=== PATIENT | female | born 1945 | race Caucasian/White ===

== ENCOUNTER → 2020-04-20 10:54 | Outpatient (CLI) | payer MEDICARE, OTHER, SELFPAY ==
[2020-01-16 10:12] VITALS: BMI 30.9
[2020-04-20 13:06] LABS: Vitamin D,25 Hydroxy 50.6 ng/mL
[2020-04-20 13:29] LABS: ALB/GLOB Ratio 1.1 RATIO (0.9-2.4); AST(SGOT) 17 U/L (15-37); Alanine Aminotransfer ALT/SGPT 18 U/L (13-56); Albumin, Serum 3.6 g/dL (3.2-5.0); Alkaline Phosphatase 53 U/L (45-117); Anion Gap 6 (5-15); BUN 17 mg/dL (7-18); Calcium,Total 9.4 mg/dL (8.5-10.1); Chloride 106 mmol/L (98-107); Cholesterol 264 mg/dL (200); Creatinine, Serum 0.77 mg/dL (0.55-1.02); EST Glomerular Filtration Rate 77 mL/min (>60); Est Glom Filt Rate - Afr Amer 93 mL/min (>60); Globulin 3.4 g/dL (2.2-4.2); Glucose 95 mg/dL (74-106); High Density Lipoprotein 43 mg/dL; Sodium Level 142 mmol/L (136-145); Triglycerides 348 mg/dL; Very Low Density Lipoprotein 70 mg/dL (5-40)
== END ==
PROVIDERS: PCP Physician Assistant Medical; Referring Provider Internal Medicine Endocrinology, Diabetes & Metabolism; Visit Provider Internal Medicine Endocrinology, Diabetes & Metabolism
DX: M81.0 Age-related osteoporosis without current pathological fracture (principal); E78.5 Hyperlipidemia, unspecified
CPT/HCPCS: 36415; 80053; 80061; 82306

== ENCOUNTER → 2020-05-06 10:45 | Outpatient (CLI) | payer MEDICARE, OTHER, SELFPAY ==
[2020-04-20 14:23] VITALS: BMI 30.9
[2020-05-06] MEDS: Zoledronic Acid 5 MG 100 ML 300 MG IV (11:21)
[2020-05-06 11:54] VITALS: BP 106/58; PULSE 60; RESP 12; TEMP 36.2; O2SAT 99
== END ==
PROVIDERS: PCP Physician Assistant Medical; Referring Provider Internal Medicine Endocrinology, Diabetes & Metabolism; Visit Provider Internal Medicine Endocrinology, Diabetes & Metabolism
DX: M81.0 Age-related osteoporosis without current pathological fracture (principal)
CPT/HCPCS: 96365; J3489

== ENCOUNTER → 2021-04-12 10:28 | Outpatient (CLI) | payer MEDICARE, SELFPAY ==
[2021-04-12 12:18] LABS: ALB/GLOB Ratio 0.9 RATIO (0.9-2.4); AST(SGOT) 18 U/L (15-37); Alanine Aminotransfer ALT/SGPT 25 U/L (13-56); Albumin, Serum 3.2 g/dL (3.2-5.0); Alkaline Phosphatase 40 U/L (45-117); Anion Gap 6 (5-15); BUN 19 mg/dL (7-18); BUN/Creat Ratio 25.8 RATIO (10-20); Calcium,Total 8.8 mg/dL (8.5-10.1); Chloride 106 mmol/L (98-107); Creatinine, Serum 0.74 mg/dL (0.55-1.02); EST Glomerular Filtration Rate 82 mL/min (>60); Est Glom Filt Rate - Afr Amer 99 mL/min (>60); Globulin 3.5 g/dL (2.2-4.2); Glucose 105 mg/dL (74-106); Protein, Total 6.7 g/dL (6.4-8.2); Sodium Level 141 mmol/L (136-145)
[2021-04-12 15:55] LABS: Vitamin D,25 Hydroxy 57.3 ng/mL
== END ==
PROVIDERS: PCP Physician Assistant Medical; Visit Provider Internal Medicine Endocrinology, Diabetes & Metabolism
DX: M81.0 Age-related osteoporosis without current pathological fracture (principal); E55.9 Vitamin D deficiency, unspecified
CPT/HCPCS: 36415; 80053; 82306

== ENCOUNTER 2021-05-18 19:23 | Inpatient (IN) | payer MEDICARE, SELFPAY ==
[2021-05-18] VITALS (23 sets, daily range): BP systolic 124–170; BP diastolic 61–129; PULSE 58–78; RESP 16–419; TEMP 35.8–36.9; O2SAT 94–100; BMI 31.0
--- NOTE | 2021-05-18 19:36 | CT_ITS ---
We are attempting to reach an attending provider to discuss findings. An addendum with communication details will be sent when the communication is complete. STUDY: CTA HEAD AND NECK WITH CONTRAST REASON FOR EXAM: Female, 76 years old. Slurred speech/strokelike symptoms RADIATION DOSAGE (If Supplied By Facility): CTDIvol = ( ) mGy, DLP = ( ) mGycm TECHNIQUE: CT angiography was performed with a multi-detector CT scanner. Data acquisition was obtained from the skull base through the vertex following intravenous administration of IV 100mL Isovue-370. MIP images were reconstructed from the axial data set. Post-processing of the angiographic images was performed, with multiplanar reformation and 3D reconstruction. Individualized dose optimization techniques were used for this CT. COMPARISON: No relevant priors. FINDINGS: Normal bilateral petrous and cavernous carotid arteries. Normal anterior cerebral arteries. Normal intact anterior communicating artery (ACOM). Normal M1 and M2 segments of the middle cerebral arteries, with normal M1 bifurcations. Normal right posterior communicating artery (PCOM). origin of the left posterior cerebral artery with prominent posterior to indicating artery. Right vertebral artery terminates as the posterior inferior cerebellar artery. Normal basilar artery with a normal basilar bifurcation. The visualized bilateral superior cerebellar (SCA) arteries are normal. Normal P1 segment on the right. origin of the left [employer] with absent P1 segment. Normal bilateral P2 and visualized P3 segments of the posterior cerebral arteries. There is no demonstrated aneurysm of the [place]. AORTIC ARCH: Normal visualized aortic arch. Normal origins of the brachiocephalic, left common carotid, and left subclavian arteries. RIGHT CAROTID ARTERIES: Normal right common carotid artery (CCA). Normal right common carotid bulb. Mild atherosclerotic calcification of the proximal right ICA without stenosis. Normal visualized cervical portion of the right internal carotid artery. Normal origin of the right external carotid artery (ECA). LEFT CAROTID ARTERIES: Normal left common carotid artery (CCA). Normal left common carotid bulb. Normal origin of the left internal carotid (ICA) artery without stenosis. Normal visualized cervical portion of the left internal carotid artery. Normal origin of the left external carotid artery (ECA). VERTEBRAL ARTERIES: Left dominant vertebral artery. CT/STROKE CTA Head AND Neck W/Con IMPRESSION: Normal CTA Head and neck with contrast. Electronically Signed: Caitlyn Morgan MD at 20:12 EDT Tel , Service support ,
--- NOTE | 2021-05-18 19:36 | CT_ITS ---
We are attempting to reach an attending provider to discuss findings. An addendum with communication details will be sent when the communication is complete. EXAMINATION : Head CT w/out contrast HISTORY : STROKE COMPARISON : None. TECHNIQUE : Multiple contiguous axial images were obtained from the skull base to the vertex without intravenous contrast. A radiation dose optimization technique was used for this scan. FINDINGS : The ventricles and sulci are normal in size. There is no evidence for acute intracranial hemorrhage, mass effect, or midline shift. There is no extra-axial fluid collection. There is normal valdez-white differentiation, without CT evidence of acute ischemia or infarct. The skull base and calvarium are unremarkable. The orbits are unremarkable. The paranasal sinuses are clear. The mastoid air cells are well-aerated. The soft tissues are unremarkable. CT/STROKE Brain/Head without Cont IMPRESSION: No acute intracranial abnormality. Electronically Signed: Be Jordan MD at 19:53 EDT Tel , Service support ,
--- NOTE | 2021-05-18 19:38 | EKG12_ITS ---
Test Reason : DYSRHYTHMIA Blood Pressure : / mmHG Vent. Rate : 071 BPM Atrial Rate : 071 BPM P-R Int : 148 ms QRS Dur : 082 ms QT Int : 402 ms P-R-T Axes : 035 003 022 degrees QTc Int : 436 ms Normal sinus rhythm Nonspecific ST abnormality Abnormal ECG Confirmed by EFRA LICONA, PRINCE ([id number]), tape editor CASSIUS ARMENTA ([id number]) on 05/20/2021 1:45:16 P M Referred By: GA Confirmed By:ANAT KRAUS MD
--- NOTE | 2021-05-18 19:43 | RAD_ITS ---
INDICATION: weakness EXAMINATION/TECHNIQUE: X-RAY - XR Chest 1 View COMPARISON: None. FINDINGS: The lungs are clear. The cardiomediastinal silhouette is unremarkable. Elevation of the right hemidiaphragm. No pleural effusion or pneumothorax. Degenerative changes of the thoracic spine. RAD/Chest 1 View (Portable) IMPRESSION: No acute radiographic abnormalities. Electronically Signed: Be Jordan MD at 20:36 EDT Tel , Service support ,
--- NOTE | 2021-05-18 19:45 | ED.RN ---
Just got off phone with [facility] and we are to call back when patient in room
--- NOTE | 2021-05-18 19:47 | ED.RN ---
On phone with [facility], they are contacting Dr Fuller
--- NOTE | 2021-05-18 19:52 | ED.RN ---
Nursing starting with leighton speaking again and reports this is the same as how it started when at the restaurant
[2021-05-18 19:57] LABS: Absolute Neutrophil Count 2.6 X10^3/uL (2.0-7.7); Basophil# 0.05 X10^3/uL; Basophil% 0.8 % (0-1); Eosinophil# 0.12 X10^3/uL; Eosinophils% 1.9 % (0-5); Hematocrit 40.4 % (37-47); Lymphocyte % 43.5 % (19-41); Mean Corp Hgb Conc 34.7 g/dL (32-36); Mean Corpuscular Hgb 31.7 pg (27.0-32.0); Mean Corpuscular Volume 91.4 fL (81-99); Mean Platelet Vol. 9.7 fl (6.2-12.0); Monocyte# 0.69 X10^3/uL; Monocyte% 11.1 % (0-10); NRBC Flagged by Analyzer 0 % (0-5); Neutrophil # 2.63 X10^3/uL (2.7-7.7); Neutrophil % 42.5 % (47-70); Platelet Count 173 K/mm3 (150-450); RBC Distribution Width CV 12.4 % (11.6-14.6); RBC Distribution Width SD 41.2 fl (35.1-43.9); Red Blood Count 4.42 M/mm3 (4.2-5.4); White Blood Count 6.2 K/mm3 (4.4-11.0)
[2021-05-18 20:00] LABS: Partial Thromboplast Time 25.1 Seconds (24.1-36.2); Prothrombin Time (Protime)PT. 12.6 SECONDS (11.7-14.9)
--- NOTE | 2021-05-18 20:08 | ED.RN ---
Doctors are discussing whether or not to do TPA at this time
--- NOTE | 2021-05-18 20:10 | ED.RN ---
is aware of risks and gave okay for the TPA. Pharmacy is aware.
[2021-05-18 20:19] LABS: Anion Gap 7 (5-15); BUN 24 mg/dL (7-18); BUN/Creat Ratio 24.7 RATIO (10-20); Calcium,Total 9.1 mg/dL (8.5-10.1); Chloride 108 mmol/L (98-107); Creatinine, Serum 0.97 mg/dL (0.55-1.02); EST Glomerular Filtration Rate 59 mL/min (>60); Est Glom Filt Rate - Afr Amer 72 mL/min (>60); Estimated Creatinine Clearance 40.82 ml/min; Glucose 112 mg/dL (74-106); Potassium 3.6 mmol/L (3.5-5.1); Sodium Level 141 mmol/L (136-145); Troponin-I HS 17 pg/mL (3.0-54.0)
[2021-05-18] MEDS: hydrALAZINE 20 MG/ML Vial IV (20:21)
--- NOTE | 2021-05-18 20:41 | ED.RN ---
TPA paused d/t change in the NIHSS but after eval, he decided to restart therapy as she started to follow directions, able to move the 4 extremities. Restarted TPA after decision made - see SEP.
[2021-05-18] MEDS: Ondansetron 4 MG/2 ML Vial IV (20:51)
[2021-05-18 21:29] LABS: Alcohol, Blood (Medical)-Serum < 3.0 mg/dL
--- NOTE | 2021-05-18 21:50 | CT_ITS ---
EXAM: CT ABDOMEN AND PELVIS WITHOUT INTRAVENOUS CONTRAST CLINICAL INDICATION: abd pain TECHNIQUE: Helically acquired images were obtained of the abdomen and pelvis without intravenous contrast. This CT exam was performed using one or more of the following dose reduction techniques: automated exposure control, adjustment of the mA and/or kV according to patient size, and/or use of iterative reconstruction technique. This report was created using [employer] report generation technology. COMPARISON: None. FINDINGS: LOWER THORAX: Unremarkable. Lung bases are clear. No cardiomegaly. No significant pericardial effusion. ABDOMEN: LIVER: 2.4 cm low-attenuation lesion in the lateral segment of the liver, not characterized without contrast. The liver is otherwise unremarkable. GALLBLADDER AND BILE DUCTS: Unremarkable. No calcified gallstones. No gallbladder distention or wall edema. No intra- or extrahepatic biliary ductal dilation. PANCREAS: Unremarkable. No focal cystic mass. SPLEEN: Unremarkable. Normal size without focal cystic or solid mass. ADRENALS: Unremarkable. No nodules. KIDNEYS AND URETERS: Retained contrast in the renal collecting systems from prior injection. No filling defect in the collecting systems. No hydronephrosis. Kidneys are unremarkable. Normal renal size and position. STOMACH AND BOWEL: Unremarkable. No stomach or bowel distention. No focal inflammatory change. PELVIS: APPENDIX: No evidence of acute appendicitis. BLADDER: Bladder is well distended with unopacified urine and is unremarkable. REPRODUCTIVE: Unremarkable as visualized. No mass. ABDOMEN and PELVIS: INTRAPERITONEAL SPACE: Unremarkable. No ascites or other fluid collection. No free air. BONES/JOINTS: Unremarkable. No suspicious lytic or blastic abnormality. SOFT TISSUES: Unremarkable. No discrete abdominal or pelvic wall hernia. VASCULATURE: Unremarkable. Abdominal aorta is normal in caliber. LYMPH NODES: Unremarkable. No enlarged lymph nodes. CT/Abdomen/Pelvis without Cont IMPRESSION: 1. No acute findings in the abdomen or pelvis. 2. Hepatic hypodensity not adequately characterized without contrast. Electronically Signed: Caitlyn Morgan MD at 22:26 EDT Tel , Service support ,
[2021-05-18 21:52] LABS: Bacteria 0 SEEN /hpf (None Seen); Color, Urine Yellow (Yellow); Glucose, Dipstick Normal (Normal); Ketone-Dipstick 5 mg/dl (Negative); Leukocyte Esterase-Dipstick 25 /ul (Negative); Mucous, Urine 0 SEEN /hpf (<or=2+); Nitrite-Dipstick Negative (Negative); Occult Blood-Urine 25 /ul (Negative); Protein-Dipstick Negative (Negative); Red Blood Cells-Urine 0 SEEN /hpf (0-5); Squamous Epithelial Cells - UA 0 SEEN /hpf (5-10); Urine Bilirubin Dipstick Negative (Negative); Urine Clarity Clear (Clear); Urine Urobilinogen Normal (Normal)
[2021-05-18] MEDS: proMETHazine 25 MG/ML Syringe 12.5 MG IM (21:52)
[2021-05-18 22:36] LABS: Amphetamine Urine VISTA NEGATIVE (<1000 ng/mL); Barbiturate Urine VISTA NEGATIVE (< 200 ng/mL); Benzodiazepine Urine VISTA NEGATIVE (< 200 ng/mL); Cocaine Urine VISTA NEGATIVE (< 300 ng/mL); Ecstacy Urine VISTA NEGATIVE (< 500 ng/mL); Methadone Urine VISTA NEGATIVE (< 300 ng/mL); PCP Urine VISTA NEGATIVE (< 25 ng/mL); THC Urine VISTA NEGATIVE (< 50 ng/mL); Vista UDS pH Range 7
[2021-05-18 22:37] LABS: White Blood Cells 0-5 SEEN /hpf (0-5)
--- NOTE | 2021-05-18 23:21 | PCM.HP.STD ---
HPI - General General Date of Admission: 05/18/21 Date of Service: 05/18/21 Chief Complaint: Dysarthria HPI Narrative The patient is a 76 y/o F w/ PMHx: Osteoporosis, Obesity, Hx Skin CA, HLD who presents to the [facility] ED on 05/18/21 with history of onset significant dysarthria starting at 1730 with difficulty speaking and when attempts were made speech was unintelligible while she had been out eating with also transient confusion and difficulty with language which reportedly briefly improved while in the ER but symptoms then worsened with 1 prior similar episode a year prior however it was much less severe at that time and only lasted minutes and from work-up both EEG and MRI were obtained with no occlusive findings at that time. Patient also reports an associated mild to severe left-sided headache, throbbing, ranging from 3-10 out of 10 in severity with light and sound sensitivity associated as well as mild nausea and while in the ED complains of mild abdominal discomfort and upset. Work-up in the ED included T 96.4 temporally, heart rate 59, BP initially 155/80 with repeat 143/84, respiratory rate 17, 99% on room air, CBC with WBC 6.2, hemoglobin 14, platelet 173 without marked shift, unremarkable coags, BMP with chloride 108, BUN/creatinine 24/0.97, glucose 112, high-sensitivity troponin 17, ethyl alcohol less than 3, CT head with no acute intracranial findings, CTA head and neck noted to be normal per radiology, chest x-ray with no acute cardiopulmonary findings, UA not marked appearing, UDS unremarkable, EKG SR without acute evidence of ischemia. NIH stroke scale reportedly 7 at 2013 in the ED upon evaluation and seemed to intermittently vacillate between 3-20. In the ED TPA initially because secondary to change in NH stroke scale however restarted following physician reassessment. Patient did have onset of abdominal pain following alteplase administration therefore follow-up CT abdomen pelvis was obtained with no acute findings in the abdomen pelvis with a hepatic hypodensity not adequately characterized without contrast. [facility] Medical History (Updated 05/19/21 @ 00:[address] Sonny Mckeon, DO) Cataract Fracture Hyperlipidemia Low calcium levels Osteopenia Skin cancer Vision abnormalities Home Medications aspirin 81 mg tablet,delayed release 81 mg PO DAILY 01/16/20 [History Last Taken Unknown] calcium carbonate 600 mg calcium (1,500 mg) tablet 600 mg PO BID 01/16/20 [History Last Taken Unknown] docusate sodium 50 mg capsule 50 mg PO DAILY 01/16/20 [History Last Taken Unknown] multivitamin 1 tab PO DAILY 01/16/20 [History Last Taken Unknown] vitamin D3-vitamin K2 1 tab PO DAILY 05/18/21 [History Last Taken Unknown] Allergy/AdvReac Type Severity Reaction Status Date / Time bee venom protein (honey bee) Allergy Severe Anaphylaxis Verified 05/18/21 19:29 Family History (Updated 05/19/21 @ 00:[address] Corry Null MD) Mother Osteoporosis Cancer Hx Liver CA. Father Heart disease CVA (cerebral vascular accident) Surgical History (Updated 05/19/21 @ 00:[address] Corry Null MD) No history of previous surgery Social History (Updated 05/19/21 @ 00:[address] Corry Null MD) household members: spouse Smoking Status: Never smoker alcohol intake: never substance use type: does not use ROS Review of Systems ROS Unobtainable: due to encephalopathy Vital Signs Vital Signs Vital Signs: 05/18/21 19:24 05/18/21 19:32 05/18/21 19:33 Temperature 96.4 F L Temperature Source Temporal Pulse Rate 59 L 58 L Respiratory Rate 17 16 17 Blood Pressure 155/80 H 143/84 H 143/84 H Blood Pressure Mean 105 103 103 Pulse Ox 99 99 98 Oxygen Delivery Method Room Air Room Air Room Air 05/18/21 19:53 05/18/21 20:02 05/18/21 20:20 Temperature 97.2 F L Temperature Source Temporal Pulse Rate 59 L 62 64 Respiratory Rate 20 H 62 H Blood Pressure 148/129 H 170/84 H 155/61 H Blood Pressure Mean 135 112 92 Pulse Ox 99 100 Oxygen Delivery Method Room Air Room Air 05/18/21 20:22 05/18/21 20:23 05/18/21 20:31 Temperature Temperature Source Pulse Rate 63 68 Respiratory Rate 19 H Blood Pressure 155/61 H 155/63 H 146/70 H Blood Pressure Mean 92 95 Pulse Ox 100 Oxygen Delivery Method Room Air 05/18/21 20:38 05/18/21 20:53 05/18/21 21:02 Temperature Temperature Source Pulse Rate 74 72 72 Respiratory Rate 18 22 H 16 Blood Pressure 124/70 H 156/69 H 135/96 H Blood Pressure Mean 88 98 109 Pulse Ox 98 98 97 Oxygen Delivery Method Room Air Room Air Room Air 05/18/21 21:08 05/18/21 21:16 05/18/21 21:23 Temperature 97.8 F 98.3 F 98.1 F Temperature Source Temporal Temporal Temporal Pulse Rate 72 71 74 Respiratory Rate 19 H 17 16 Blood Pressure 134/76 H 136/67 H 136/64 H Blood Pressure Mean 95 90 88 Pulse Ox 100 99 98 Oxygen Delivery Method Room Air Room Air Room Air 05/18/21 21:30 05/18/21 22:00 05/18/21 22:15 Temperature 97.4 F L 97.4 F L 98.1 F Temperature Source Temporal Temporal Temporal Pulse Rate 70 67 74 Respiratory Rate 419 H 18 18 Blood Pressure 136/65 H 134/68 H 145/71 H Blood Pressure Mean 88 90 95 Pulse Ox 98 97 98 Oxygen Delivery Method Room Air Room Air Room Air 05/18/21 22:45 05/18/21 23:01 Temperature 98.4 F Temperature Source Temporal Pulse Rate 78 74 Respiratory Rate 16 16 Blood Pressure 143/76 H 133/80 H Blood Pressure Mean 98 97 Pulse Ox 97 94 Oxygen Delivery Method Room Air Room Air Weight Weight: 175 lb 0.752 oz Body Mass Index (BMI) 31.0 Physical Exam Narrative Physical Examination: General: Awakens to some stimuli, intermittently alert, oriented currently to self and able to correctly notify her and her sister but has been extremely confused intermittently, currently cooperative, laying in the ED bed, moaning, answering some questions but with some difficulty. Skin: Normal color, normal turgor, no icterus, no cyanosis. HEENT: AT/NC, EOMI, PERRLA, dry MM, no carotid bruits or JVD noted. Lungs: Diminished, greater bases, moderate effort, no rales, ronchi or wheezing. Heart: Regular rate and rhythm; no gallop, rub audible. Abdomen: Soft, NTTP, ND, mildly hyperactive BS, no HSM. Extremities: No cyanosis, clubbing, or edema. Neurological: Awakens to some stimuli, intermittently alert, oriented currently to self and able to correctly notify her and her sister but has been extremely confused intermittently, currently cooperative, laying in the ED bed, moaning, answering some questions but with some difficulty, cognitive function currently not baseline intact; pupils equally reactive to light and accommodation but difficult exam as very light sensitive, cranial nerves grossly appear normal, moving extremities spontaneously, sensation appears intact but difficulty with any concept of finger-nose or [id number], negative Babinski, strength severely globally decreased secondary to current presentation, highly sound and light sensitive. Psychiatric: Affect appears uncomfortable, moaning, no acute evidence of depressive or anxiety feelings. Results Lab / Micro Data Result Diagrams: 05/18/21 19:25 05/18/21 19:25 Labs: Laboratory Results - last 24 hr 05/18/21 19:25: WBC 6.2, RBC 4.42, Hgb 14.0, Hct 40.4, MCV 91.4, MCH 31.7, MCHC 34.7, RDW Std Deviation 41.2, RDW Coeff of Latisha 12.4, Plt Count 173, MPV 9.7, Immature Gran % (Auto) 0.200, Neut % (Auto) 42.5 L, Lymph % (Auto) 43.5 H, [place] % (Auto) 11.1 H, Eos % (Auto) 1.9, Baso % (Auto) 0.8, Absolute Neuts (auto) 2.6, Absolute Lymphs (auto) 2.70, Nucleated RBC % 0 05/18/21 19:25: PT 12.6, INR 1.0, APTT 25.1 05/18/21 19:25: Sodium 141, Potassium 3.6, Chloride 108 H, Carbon Dioxide 26.0, Anion Gap 7, BUN 24 H, Creatinine 0.97, Estim Creat Clear Calc 40.82, Est GFR (MDRD) Af Amer 72, Est GFR (MDRD) Non-Af 59 L, BUN/Creatinine Ratio 24.7 H, Glucose 112 H, Calcium 9.1, Troponin I High Sens 17 05/18/21 19:50: Ethyl Alcohol < 3.0 05/18/21 21:42: Urine Color Yellow, Urine Clarity Clear, Urine pH 8.0, Ur Specific [place] 1.010, Urine Protein Negative, Urine Glucose (UA) Normal, Urine Ketones 5 H, Urine Occult Blood 25 H, Urine Nitrite Negative, Urine Bilirubin Negative, Urine Urobilinogen Normal, Ur Leukocyte Esterase 25 H, Urine RBC 0 SEEN, Urine WBC 0-5 SEEN, Ur Squamous Epith Cells 0 SEEN, Urine Bacteria 0 SEEN, Urine Mucus 0 SEEN 05/18/21 : Urine Opiates Screen NEGATIVE, Urine Methadone Screen NEGATIVE, Ur Barbiturates Screen NEGATIVE, Ur Phencyclidine Scrn NEGATIVE, Ur Amphetamines Screen NEGATIVE, U Methamphetamin-MDMA NEGATIVE, U Benzodiazepines Scrn NEGATIVE, Urine Cocaine Screen NEGATIVE, U Cannabinoids Screen NEGATIVE, Ur Drug Screen Comment Radiology Impression Brain CT 05/18/21 19:36 IMPRESSION: No acute intracranial abnormality. Electronically Signed: Be Jordan MD at 19:53 EDT Tel , Service support , ADDENDUM: 05/18/212005 IMPRESSION: No acute intracranial abnormality. N.B. : The above Results were Read Back by Be Jordan MD to Sonny Mckeon DO, and understanding confirmed on 05/18/2021 19:59:56 (ET). Electronically Signed: Be Jordan MD at 19:53 EDT Tel , Service support , ADDENDUM: 05/18/212005 IMPRESSION: No acute intracranial abnormality. N.B. : The above Results were Read Back by Be Jordan MD to Sonny Mckeon DO, and understanding confirmed on 05/18/2021 19:59:56 (ET). Electronically Signed: Be Jordan MD at 19:53 EDT Tel , Service support , Head/Neck CTA 05/18/21 19:36 IMPRESSION: Normal CTA Head and neck with contrast. Electronically Signed: Caitlyn Morgan MD at 20:12 EDT Tel , Service support , ADDENDUM: 05/18/212018 IMPRESSION: Normal CTA Head and neck with contrast. N.B. : The above Results were Read Back by Caitlyn Morgan MD to Sonny Mckeon, , DO, and understanding confirmed on 05/18/2021 20:12:37 (ET). Electronically Signed: Caitlyn Morgan MD at 20:12 EDT Tel , Service support , Chest X-Ray 05/18/21 19:43 IMPRESSION: No acute radiographic abnormalities. Electronically Signed: Be Jordan MD at 20:36 EDT Tel , Service support , Abdomen/Pelvis CT 05/18/21 21:50 IMPRESSION: 1. No acute findings in the abdomen or pelvis. 2. Hepatic hypodensity not adequately characterized without contrast. Electronically Signed: Caitlyn Morgan MD at 22:26 EDT Tel , Service support , Assessment & Plan Assessment/Plan (1) Acute CVA (cerebrovascular accident): PLAN: The patient is a 76 y/o F w/ PMHx: Migraines, Osteoporosis, Obesity, Hx Skin CA, HLD who presents to the [facility] ED on 05/18/21 with history of onset significant dysarthria starting at 1730 with difficulty speaking and when attempts were made speech was unintelligible while she had been out eating with also transient confusion and difficulty with language which reportedly briefly improved while in the ER but symptoms then worsened with 1 prior similar episode of shorter duration. 1. Dysarthria concerning for Acute CVA versus higher suspicion Acute complex migraine: Will admit to the ICU given TPA administration recommendation and initiation following telemetry stroke ED assessment, will obtain MRI Brain, ECHO, PT/OT/Speech/Nutrition evaluation per protocol. Will allow permissive HTN, given TPA will necessitate repeat CT head versus MRI in 24 hours and initiation if no evidence of any bleeding asa at that time, at least moderate dose statin given age w/ AM FLP, fall precautions, TSH, magnesium, FLP, hemoglobin A1c requested. Once repeat imaging obtained will require repeat neurology assessment given TPA usage. Given ICU admission will also require automatic door mechanic evaluation. Rapid COVID pending. Pending continued assessment if MRI negative may need to consider EEG or initiation more likely of regimen for intractable complex migraine. 2. Elevated BP without hypertensive diagnosis: Upon presentation blood pressures above goal, given presentation maintaining permissive hypertension, add regimen once clinically appropriate if necessary, as needed agents per 3. Hyperlipidemia: Not on agent, adding moderate dose statin given presentation, FLP in AM. 4. Chronic osteoporosis: Following with endocrinology, ongoing outpatient Reclast infusions per records, encourage continued outpatient follow-up. 5. Incidental hepatic hypodensity: CT scan is noted with hepatic hypodensity not adequately characterized without contrast, will add on hepatic profile and may need to consider follow-up liver ultrasound. 6. DVT prophylaxis: SCDs, defer any chemoprophylaxis given TPA usage as noted. 7. CODE status: Patient JAYANT is her who is present and living will is currently in place. Discussed CODE status at length including difference between FULL code, DNR-CCA and DNR-CC status. Following discussions about the differences in these status, requested Full Code status. Advanced Care Planning Face to Face Time: 16 minutes. Charges/Coding Visit Charges Inpatient E&M: 83609 Init Hosp L3 Procedures Hospitalists Procedures: 56494 Advncd Care Plan 30 Min
[2021-05-19] VITALS (32 sets, daily range): BP systolic 94–146; BP diastolic 51–75; PULSE 52–74; RESP 11–20; TEMP 36.3–36.8; O2SAT 94–100; BMI 28.0
[2021-05-19 00:03] LABS: AST(SGOT) 38 U/L (15-37); Alanine Aminotransfer ALT/SGPT 23 U/L (13-56); Albumin, Serum 3.4 g/dL (3.2-5.0); Alkaline Phosphatase 40 U/L (45-117); Bilirubin, Direct 0.05 mg/dL (0.00-0.30); Globulin 3.7 g/dL (2.2-4.2); Magnesium 1.9 mg/dL (1.6-2.6); Protein, Total 7.1 g/dL (6.4-8.2)
--- NOTE | 2021-05-19 00:43 | EDS_ITS ---
HPI History of Present Illness Chief Complaint: Neuro S/Sx Narrative Narrative: Patient is a 76-year-old female who is brought in with concern for strokelike symptoms. states that they were talking about going to a [place] restaurant around 530 this evening. Suddenly she began to have difficulty saying the word Sudanese and then her words became gibberish. Secondary to this mental status change she was brought in for evaluation [facility] Medical History (Updated 05/19/21 @ 00:[address] Sonny Mckeon DO) Cataract Fracture Hyperlipidemia Low calcium levels Osteopenia Skin cancer Vision abnormalities Home Medications aspirin 81 mg tablet,delayed release 81 mg PO DAILY 01/16/20 [History Last Taken Unknown] calcium carbonate 600 mg calcium (1,500 mg) tablet 600 mg PO BID 01/16/20 [History Last Taken Unknown] docusate sodium 50 mg capsule 50 mg PO DAILY 01/16/20 [History Last Taken Unknown] multivitamin 1 tab PO DAILY 01/16/20 [History Last Taken Unknown] vitamin D3-vitamin K2 1 tab PO DAILY 05/18/21 [History Last Taken Unknown] Allergy/AdvReac Type Severity Reaction Status Date / Time bee venom protein (honey bee) Allergy Severe Anaphylaxis Verified 05/18/21 19:29 Family History Mother Osteoporosis Social History Smoking Status: Never smoker ROS ROS ED ROS Narrative Please note review of systems may be unreliable secondary to patient's change in mental status Constitutional Constitutional ED: Denies chills or fever(s) Eyes Eyes: Reports other Details: Positive photophobia Cardiovascular Cardiovascular: Denies chest pain Respiratory/Chest Respiratory/Chest: Denies cough or dyspnea Gastrointestinal Gastrointestinal: Reports abdominal pain and nausea; Denies vomiting Genitourinary Genitourinary ED: Denies dysuria Musculoskeletal Musculoskeletal: Denies myalgias or neck pain Integumentary Denies rash Neurologic Neurologic: Reports headache(s) Hematologic/Lymphatic Hematologic/Lymphatic: Denies easy bleeding or easy bruising EXAM Physical Exam Const Vital Signs: 05/18/21 19:24 05/18/21 19:32 05/18/21 19:33 Temperature 96.4 F L Temperature Source Temporal Pulse Rate 59 L 58 L Respiratory Rate 17 16 17 Blood Pressure 155/80 H 143/84 H 143/84 H Blood Pressure Mean 105 103 103 Pulse Ox 99 99 98 Oxygen Delivery Method Room Air Room Air Room Air 05/18/21 19:53 05/18/21 20:02 05/18/21 20:20 Temperature 97.2 F L Temperature Source Temporal Pulse Rate 59 L 62 64 Respiratory Rate 20 H 62 H Blood Pressure 148/129 H 170/84 H 155/61 H Blood Pressure Mean 135 112 92 Pulse Ox 99 100 Oxygen Delivery Method Room Air Room Air 05/18/21 20:22 05/18/21 20:23 05/18/21 20:31 Temperature Temperature Source Pulse Rate 63 68 Respiratory Rate 19 H Blood Pressure 155/61 H 155/63 H 146/70 H Blood Pressure Mean 92 95 Pulse Ox 100 Oxygen Delivery Method Room Air 05/18/21 20:38 05/18/21 20:53 05/18/21 21:02 Temperature Temperature Source Pulse Rate 74 72 72 Respiratory Rate 18 22 H 16 Blood Pressure 124/70 H 156/69 H 135/96 H Blood Pressure Mean 88 98 109 Pulse Ox 98 98 97 Oxygen Delivery Method Room Air Room Air Room Air 05/18/21 21:08 05/18/21 21:16 05/18/21 21:23 Temperature 97.8 F 98.3 F 98.1 F Temperature Source Temporal Temporal Temporal Pulse Rate 72 71 74 Respiratory Rate 19 H 17 16 Blood Pressure 134/76 H 136/67 H 136/64 H Blood Pressure Mean 95 90 88 Pulse Ox 100 99 98 Oxygen Delivery Method Room Air Room Air Room Air 05/18/21 21:30 05/18/21 22:00 05/18/21 22:15 Temperature 97.4 F L 97.4 F L 98.1 F Temperature Source Temporal Temporal Temporal Pulse Rate 70 67 74 Respiratory Rate 419 H 18 18 Blood Pressure 136/65 H 134/68 H 145/71 H Blood Pressure Mean 88 90 95 Pulse Ox 98 97 98 Oxygen Delivery Method Room Air Room Air Room Air 05/18/21 22:45 05/18/21 23:01 05/18/21 23:15 Temperature 98.4 F Temperature Source Temporal Pulse Rate 78 74 78 Respiratory Rate 16 16 16 Blood Pressure 143/76 H 133/80 H 142/72 H Blood Pressure Mean 98 97 95 Pulse Ox 97 94 98 Oxygen Delivery Method Room Air Room Air Room Air Positive well nourished and well developed General Appearance ED: well developed HEENT Reports moist mucous membranes Eyes PERRL and EOMs intact bilaterally Neck supple Neck Narrative: No meningeal signs Chest Wall palpation of chest normal Resp normal respiratory effort and clear to auscultation bilaterally Cardio regular rate and regular rhythm Rate: other Other Details: Radial pulses are +2-4 bilaterally are equal and symmetric GI non-distended GI Narrative: Mild diffuse pain with palpation but no voluntary guarding or rigidity or pulsatile mass Auscultation: normoactive bowel sounds Palpation: soft Extremity normal to inspection Neuro Neuro Narrative: Patient presents the ER slightly obtunded and cannot tell me her birthdate or the year. She has difficulty following commands and there is mild dysarthria noted. Secondary to these changes she receives a total NIH stroke scale score of 3. Psych Psych Narrative: Patient seems to have a nervous/anxious affect Mood & Affect: anxious Skin no rashes or lesions noted MDM MDM MDM Narrative Medical decision making narrative: Patient presented to the ER with change in mental status as well as focal neurologic deficits giving her an NIH stroke scale score of 3. She presented approximately 2 hours from the onset of this and therefore stroke alert was activated. Patient was evaluated by the stroke neurologist and they agree that with her constellation of symptoms as well as the fact that her difficulty with speech is significantly life altering that she be given TPA. Therefore as patient was within the TPA window and did not have other contraindications to its use the TPA was ordered. CT revealed no acute bleed and CTA revealed no obvious obstruction or stenosis. Blood work revealed no clinically significant findings either. Therefore at this time with the strokelike changes and the fact TPA was given she will need to be admitted to the ICU to further delineate if the cause of her symptoms were atypical migraine versus true stroke in nature Lab Data Attestation: I reviewed the patient's lab results. Labs: Laboratory Results - last 24 hr 05/18/21 05/18/21 05/18/21 19:25 19:25 19:25 WBC 6.2 RBC 4.42 Hgb 14.0 Hct 40.4 MCV 91.4 MCH 31.7 MCHC 34.7 RDW Std Deviation 41.2 RDW Coeff of Latisha 12.4 Plt Count 173 MPV 9.7 Immature Gran % (Auto) 0.200 Neut % (Auto) 42.5 L Lymph % (Auto) 43.5 H [place] % (Auto) 11.1 H Eos % (Auto) 1.9 Baso % (Auto) 0.8 Absolute Neuts (auto) 2.6 Absolute Lymphs (auto) 2.70 Nucleated RBC % 0 PT 12.6 INR 1.0 APTT 25.1 Sodium 141 Potassium 3.6 Chloride 108 H Carbon Dioxide 26.0 Anion Gap 7 BUN 24 H Creatinine 0.97 Estim Creat Clear Calc 40.82 Est GFR (MDRD) Af Amer 72 Est GFR (MDRD) Non-Af 59 L BUN/Creatinine Ratio 24.7 H Glucose 112 H Calcium 9.1 Troponin I High Sens 17 Urine Color Urine Clarity Urine pH Ur Specific [place] Urine Protein Urine Glucose (UA) Urine Ketones Urine Occult Blood Urine Nitrite Urine Bilirubin Urine Urobilinogen Ur Leukocyte Esterase Urine RBC Urine WBC Ur Squamous Epith Cells Urine Bacteria Urine Mucus Ethyl Alcohol 05/18/21 05/18/21 19:50 21:42 WBC RBC Hgb Hct MCV MCH MCHC RDW Std Deviation RDW Coeff of Latisha Plt Count MPV Immature Gran % (Auto) Neut % (Auto) Lymph % (Auto) [place] % (Auto) Eos % (Auto) Baso % (Auto) Absolute Neuts (auto) Absolute Lymphs (auto) Nucleated RBC % PT INR APTT Sodium Potassium Chloride Carbon Dioxide Anion Gap BUN Creatinine Estim Creat Clear Calc Est GFR (MDRD) Af Amer Est GFR (MDRD) Non-Af BUN/Creatinine Ratio Glucose Calcium Troponin I High Sens Urine Color Yellow Urine Clarity Clear Urine pH 8.0 Ur Specific [place] 1.010 Urine Protein Negative Urine Glucose (UA) Normal Urine Ketones 5 H Urine Occult Blood 25 H Urine Nitrite Negative Urine Bilirubin Negative Urine Urobilinogen Normal Ur Leukocyte Esterase 25 H Urine RBC 0 SEEN Urine WBC 0-5 SEEN Ur Squamous Epith Cells 0 SEEN Urine Bacteria 0 SEEN Urine Mucus 0 SEEN Ethyl Alcohol < 3.0 Radiography Diagnostic Testing: Clinical Impression(s) from Imaging Studies Brain CT 05/18/21 19:36 IMPRESSION: No acute intracranial abnormality. Electronically Signed: Be Jordan MD at 19:53 EDT Tel , Service support , ADDENDUM: 05/18/212005 IMPRESSION: No acute intracranial abnormality. N.B. : The above Results were Read Back by Be Jordan MD to Sonny Mckeon DO and understanding confirmed on 05/18/2021 19:59:56 (ET). Electronically Signed: Be Jordan MD at 19:53 EDT Tel , Service support , ADDENDUM: 05/18/212005 IMPRESSION: No acute intracranial abnormality. N.B. : The above Results were Read Back by Be Jordan MD to Sonny Mckeon DO, and understanding confirmed on 05/18/2021 19:59:56 (ET). Electronically Signed: Be Jordan MD at 19:53 EDT Tel , Service support , Head/Neck CTA 05/18/21 19:36 IMPRESSION: Normal CTA Head and neck with contrast. Electronically Signed: Caitlyn Morgan MD at 20:12 EDT Tel , Service support , ADDENDUM: 05/18/212018 IMPRESSION: Normal CTA Head and neck with contrast. N.B. : The above Results were Read Back by Caitlyn Morgan MD to Sonny Mckeon DO, DO, and understanding confirmed on 05/18/2021 20:12:37 (ET). Electronically Signed: Caitlyn Morgan MD at 20:12 EDT Tel , Service support , Chest X-Ray 05/18/21 19:43 IMPRESSION: No acute radiographic abnormalities. Electronically Signed: Be Jordan MD at 20:36 EDT Tel , Service support , Abdomen/Pelvis CT 05/18/21 21:50 IMPRESSION: 1. No acute findings in the abdomen or pelvis. 2. Hepatic hypodensity not adequately characterized without contrast. Electronically Signed: Caitlyn Morgan MD at 22:26 EDT Tel , Service support , Critical Care Time Critical Care Time: Yes Critical care time (excluding procedures): - (Please note critical care time of 33 minutes) Discharge Plan Triage Chief Complaint: Neuro S/Sx ED Provider: Sonny Mckeon Dx/Rx/DC Orders Clinical Impression: Acute CVA (cerebrovascular accident) Primary Care Provider: Alyson Enrique Disposition Disposition: Acute Care Hospital [facility] Discharge Date/Time: 05/19/21 00:22
--- NOTE | 2021-05-19 01:02 | ECHOD_ITS ---
Reason For Study: CVA Procedure This was a 2D Doppler, Color Flow transthoracic echocardiogram. Bubble study performed. Exam performed portable in ICU/CCU. Left Ventricle Normal LV size. Left ventricular systolic function is normal. The estimated ejection fraction is 60 %. Stage 1 diastolic dysfunction. No regional wall motion abnormalities noted. Right Ventricle Normal RV size. Normal systolic function. Atria Normal left atrium. Normal right atrium. Mitral Valve Normal mitral valve. Tricuspid Valve Normal tricuspid valve. Mild tricuspid valve insufficiency. Pulmonary artery systolic pressure is 27 mmHg. Aortic Valve Normal aortic valve. Trisinus/trileaflet aortic valve. Pulmonic Valve Normal pulmonic valve. Great Vessels Normal aortic root. The pulmonary artery is normal size. Normal inferior vena cava. Pericardium/Pleural No pericardial effusion. Medication Performed a rapid injection of agitated mix of 9 cc saline and 1cc air to assess for atrial septal defect. MMode/2D Measurements & Calculations LVIDd: 4.6 cm IVSd: 1.1 cm LA dimension: 3.9 cm LVIDs: 2.3 cm LVPWd: 1.2 cm FS: 50.8 % LAV(MOD-bp): 34.2 ml LA A4 area: 13.4 cm2 RA A4 area: 10.9 cm2 LAV(MOD-bp) Indexed: 18.8 ml/m2 LAV(MOD-sp2): 35.5 ml LAV(MOD-sp4): 30.3 ml Time Measurements MV dec time: 0.30 sec Doppler Measurements & Calculations MV E max kenneth: 79.3 cm/sec Lat Peak E' Kenneth: 6.3 cm/sec Med Peak E' Kenneth: 7.4 cm/sec MV A max kenneth: 98.7 cm/sec E/E' lat: 12.7 E/E' med: 10.7 MV E/A: 0.80 MV V2 max: 96.3 cm/sec MV P1/2t max kenneth: 88.6 cm/sec Ao V2 max: 126.1 cm/sec MV max P.7 mmHg MV P1/2t: 88.5 msec Ao max P.4 mmHg MV V2 mean: 48.3 cm/sec MV dec slope: 293.3 cm/sec2 MV mean P.1 mmHg MV V2 VTI: 32.9 cm MVA(P1/2t): 2.5 cm2 LV V1 max: 125.1 cm/sec PA V2 max: 93.4 cm/sec TR max kenneth: 240.1 cm/sec LV V1 max P.3 mmHg TR max P.1 mmHg ECHO/Echo Complete Interpretation Summary Normal LV size. Left ventricular systolic function is normal. The estimated ejection fraction is 60 %. Stage 1 diastolic dysfunction. Pulmonary artery systolic pressure is 27 mmHg. Structurally normal valves. Ordering Physician: Corry Null Referring Physician: Alyson Enrique Performed By: Bj Calvert RCS
[2021-05-19] MEDS: Acetaminophen 325 MG Tablet 650 MG PO ×2 (01:17→20:55)
[2021-05-19] MEDS: 0.9% Normal Saline 1,000 ML 100 ML IV (01:34)
--- NOTE | 2021-05-19 02:55 | NURSING ---
Pt. refuses to cooperate during NIH. Refuses to open eyes stating that the room is to bright even though all lights in room are off and room curtain is pulled.
[2021-05-19 04:31] LABS: Cholesterol 249 mg/dL (200); High Density Lipoprotein 42 mg/dL; Thyroid Stim Hormone (TSH) 0.53 uIU/mL (0.358-3.74); Triglycerides 148 mg/dL; Very Low Density Lipoprotein 30 mg/dL (5-40)
[2021-05-19 07:30] LABS: Bedside Glucose 105 mg/dL (70-110)
--- NOTE | 2021-05-19 08:05 | CON.PCM.CC_ITS ---
Assessment & Plan Assessment/Plan (1) Acute CVA (cerebrovascular accident): PLAN: RECOMMENDATIONS: 1. Continue routine monitoring post TPA protocol. 2. Follow-up head imaging is planned for this evening. 3. Allow for permissive hypertension for now. 4. PT/OT evaluations tomorrow. 5. Speech therapy evaluation with dietary advancement. 6. Echocardiogram is pending. IMPRESSIONS: 1. Questionable CVA status post TPA The patient presented with symptoms concerning for acute ischemic CVA versus complicated migraine. The patient did receive TPA. Initial head imaging was unremarkable. Follow-up MRI is planned for later today. For now, the patient will remain on bed rest. Continue to allow for permissive hypertension. PT/OT evaluations. Speech therapy evaluation is pending with dietary advancement to follow. 2. Advanced age/hyperlipidemia/osteoporosis Complicates care, management, recovery and prognosis. Continue home medications as indicated. This note was generated with [employer] software. It may contain incorrect words, spelling, and punctuation that were not noted in checking the note before signing. HPI Consult Data Date of Consult: 05/19/21 HPI Narrative Reason for Consultation: ? CVA s/p TPA HPI Narrative: The patient is a 76-year-old female, with a history as outlined below, who presented to the emergency department on May 18 with confusion and dysarthria. The patient apparently had a similar episode to this approximately 1 year ago with an unremarkable work-up, including MRI and EEG. She also reported an associated headache at the time of her presentation. On presentation to the emergency department, the patient was noted to be afebrile and hemodynamically stable. She was maintaining appropriate oxygen saturations on room air. CBC with differential was unremarkable. Chemistry profile was unremarkable. Urine analysis was unremarkable. Toxicology screen was negative. Coagulation profile was within normal limits. CTA head and neck was within normal limits. CT head revealed no acute intracranial abnormality. Chest x-ray demonstrated an elevated right hemidiaphragm. CT abdomen/pelvis was unremarkable. Tele-neurology consultation was obtained. Etiologies of considera tion included acute CVA versus complicated migraine. It was recommended that TPA be administered. The patient received the aforementioned medication in the emergency department. She was subsequently transferred to the medical intensive care unit for further management. [facility] Medical History Cataract Fracture Hyperlipidemia Low calcium levels Osteopenia Skin cancer Vision abnormalities Home Medications aspirin 81 mg tablet,delayed release 81 mg PO DAILY 01/16/20 [History Last Taken Unknown] calcium carbonate 600 mg calcium (1,500 mg) tablet 600 mg PO BID 01/16/20 [History Last Taken Unknown] docusate sodium 50 mg capsule 50 mg PO DAILY 01/16/20 [History Last Taken Unknown] multivitamin 1 tab PO DAILY 01/16/20 [History Last Taken Unknown] vitamin D3-vitamin K2 1 tab PO DAILY 05/18/21 [History Last Taken Unknown] Allergy/AdvReac Type Severity Reaction Status Date / Time bee venom protein (honey bee) Allergy Severe Anaphylaxis Verified 05/18/21 19:29 Family History (Updated 05/19/21 @ 00:[address] Corry Null MD) Mother Osteoporosis Cancer Hx Liver CA. Father Heart disease CVA (cerebral vascular accident) Surgical History No history of previous surgery Social History (Updated 05/19/21 @ 00:[address] Corry Null MD) household members: spouse Smoking Status: Never smoker alcohol intake: never substance use type: does not use ROS Constitutional Constitutional: Reports headache(s); Denies chills, fatigue or fever(s) Eyes Eyes: Denies blurry vision or change in vision ENT HEENT: Reports headache(s) Cardiovascular Cardiovascular: Denies chest pain, dyspnea or edema Respiratory/Chest Respiratory/Chest: Denies cough or dyspnea Gastrointestinal Gastrointestinal: Denies abdominal pain, diarrhea, nausea or vomiting Genitourinary Genitourinary: Denies difficulty urinating Musculoskeletal Musculoskeletal: Denies arthralgias, back pain or joint pain Integumentary Integumentary: Denies lesions, rash or skin ulcer Neurologic Neurologic: Reports abnormal speech and confusion; Denies abnormal gait Psychiatric Psychiatric: Denies anxiety or depression Endocrine Endocrinology: Denies fatigue Hematologic/Lymphatic Hematologic/Lymphatic: Denies easy bleeding or easy bruising Physical Exam Const alert and no apparent distress General Appearance: cooperative HEENT normocephalic, head/scalp atraumatic and moist oral mucous membranes Eyes PERRL and EOMs intact bilaterally Neck supple General: trachea midline Chest inspection of chest normal Resp Auscultation: clear to auscultation bilaterally Cardio regular rate and regular rhythm GI normal to inspection, nondistended, normoactive bowel sounds Extremity no clubbing, cyanosis or edema Skin no rashes or lesions noted Neuro CN's II-XII intact bilaterally, moves all extremities and no focal motor deficits Speech: speech normal Psych cooperative and affect normal Lab / Micro Data Result Diagrams: 05/18/21 19:25 05/18/21 19:25 Labs: Laboratory Results - last 24 hr 05/18/21 19:23: POC Glucose 105 05/18/21 19:25: WBC 6.2, RBC 4.42, Hgb 14.0, Hct 40.4, MCV 91.4, MCH 31.7, MCHC 34.7, RDW Std Deviation 41.2, RDW Coeff of Latisha 12.4, Plt Count 173, MPV 9.7, Immature Gran % (Auto) 0.200, Neut % (Auto) 42.5 L, Lymph % (Auto) 43.5 H, Love % (Auto) 11.1 H, Eos % (Auto) 1.9, Baso % (Auto) 0.8, Absolute Neuts (auto) 2.6, Absolute Lymphs (auto) 2.70, Nucleated RBC % 0 05/18/21 19:25: PT 12.6, INR 1.0, APTT 25.1 05/18/21 19:25: Sodium 141, Potassium 3.6, Chloride 108 H, Carbon Dioxide 26.0, Anion Gap 7, BUN 24 H, Creatinine 0.97, Estim Creat Clear Calc 40.82, Est GFR (MDRD) Af Amer 72, Est GFR (MDRD) Non-Af 59 L, BUN/Creatinine Ratio 24.7 H, Glucose 112 H, Calcium 9.1, Troponin I High Sens 17 05/18/21 19:50: Ethyl Alcohol < 3.0 05/18/21 21:42: Urine Color Yellow, Urine Clarity Clear, Urine pH 8.0, Ur Specific [place] 1.010, Urine Protein Negative, Urine Glucose (UA) Normal, Urine Ketones 5 H, Urine Occult Blood 25 H, Urine Nitrite Negative, Urine Bilirubin Negative, Urine Urobilinogen Normal, Ur Leukocyte Esterase 25 H, Urine RBC 0 SEEN, Urine WBC 0-5 SEEN, Ur Squamous Epith Cells 0 SEEN, Urine Bacteria 0 SEEN, Urine Mucus 0 SEEN 05/18/21 23:38: Magnesium 1.9, Total Bilirubin 0.50, Direct Bilirubin 0.05, AST 38 H, ALT 23, Alkaline Phosphatase 40 L, Total Protein 7.1, Albumin 3.4, Globulin 3.7 05/18/21 : Urine Opiates Screen NEGATIVE, Urine Methadone Screen NEGATIVE, Ur Barbiturates Screen NEGATIVE, Ur Phencyclidine Scrn NEGATIVE, Ur Amphetamines Screen NEGATIVE, U Methamphetamin-MDMA NEGATIVE, U Benzodiazepines Scrn NEGATIVE, Urine Cocaine Screen NEGATIVE, U Cannabinoids Screen NEGATIVE, Ur Drug Screen Comment 05/19/21 04:00: Triglycerides 148, Cholesterol 249 H, LDL Cholesterol 177 H, VLDL Cholesterol 30, HDL Cholesterol 42, TSH 0.53 Micro: Microbiology 05/19/21 00:30 Nasal Secretion SARS-CoV-2 Antigen (Rapid) - Final Radiology Impression Brain CT 05/18/21 19:36 IMPRESSION: No acute intracranial abnormality. Electronically Signed: Be Jordan MD at 19:53 EDT Tel , Service support , ADDENDUM: 05/18/212005 IMPRESSION: No acute intracranial abnormality. N.B. : The above Results were Read Back by Be Jordan MD to Sonny Mckeon DO, and understanding confirmed on 05/18/2021 19:59:56 (ET). Electronically Signed: Be Jordan MD at 19:53 EDT Tel , Service support , ADDENDUM: 05/18/212005 IMPRESSION: No acute intracranial abnormality. N.B. : The above Results were Read Back by Be Jordan MD to Sonny Mckeon DO, and understanding confirmed on 05/18/2021 19:59:56 (ET). Electronically Signed: Be Jordan MD at 19:53 EDT Tel , Service support , Head/Neck CTA 05/18/21 19:36 IMPRESSION: Normal CTA Head and neck with contrast. Electronically Signed: Caitlyn Morgan MD at 20:12 EDT Tel , Service support , ADDENDUM: 05/18/21 2019 IMPRESSION: Normal CTA Head and neck with contrast. N.B. : The above Results were Read Back by Caitlyn Morgan MD to Sonny Mckeon DO, DO, and understanding confirmed on 05/18/2021 20:12:37 (ET). Electronically Signed: Caitlyn Morgan MD at 20:12 EDT Tel , Service support , Chest X-Ray 05/18/21 19:43 IMPRESSION: No acute radiographic abnormalities. Electronically Signed: Be Jordan MD at 20:36 EDT Tel , Service support , Abdomen/Pelvis CT 05/18/21 21:50 IMPRESSION: 1. No acute findings in the abdomen or pelvis. 2. Hepatic hypodensity not adequately characterized without contrast. Electronically Signed: Caitlyn Morgan MD at 22:26 EDT Tel , Service support , Charges/Coding Visit Charges Inpatient E&M: 45977 Init Hosp L3
[2021-05-19 08:47] LABS: Hemoglobin A1c 5.6 % (3.8-5.6)
--- NOTE | 2021-05-19 09:56 | PCS.PANDOC ---
PANDEMIC DOCUMENTATION INITIATED: Date: 03/15/2021 Time: 190
--- NOTE | 2021-05-19 10:44 | CASEMGMT ---
Social Work Pt presenting with stroke. PHQ9 depression screen completed with pt with score of 0/27 indicating no depression. Pt made aware of association of stroke and depression. Pt with no mental health concerns at this time. RAMIREZ De La Fuente
--- NOTE | 2021-05-19 10:47 | CASEMGMT ---
Social Work SW to room to meet with patient for initial assessment. SW introduced self and role at [facility]. Pt resting in bed in no distress and is Alert and Oriented x3 and answers all questions appropriately. Care providers, pharmacy, and demographics verified at this time. PCP: JUN Medina Specialists: none Preferred Pharmacy: [facility] Insurance: [facility] Prescription Benefit: yes Living Will/HPOA: Pt thinks she may have completed a LW and HCPOA but is not 100% certain. She states her Blair Pickett would be her HCPOA. SW offered to assist with completing advance directives or provide more information and pt denied. LNOK: , Blair Patterson Living Arrangements: Pt lives at home with her and is independent in all areas of care needs. Transportation: Pt drives herself. DME: Pt states she has no DME. HHC/SNF: None prior Pt wishes to return home and states has no concerns with going home at time of discharge. SW informed her that once pt is able to get out of bed and receive therapy, SW will assess for home going needs. Pt states her is retired and is able to assist at home as needed. Plan: Discharge home with spouse. RAMIREZ De La Fuente
[2021-05-19] MEDS: Multivitamins,Therapeutic Tablet 1 TABLET PO (11:05)
[2021-05-19] MEDS: Calcium Carbonate 500 MG Tablet PO ×2 (11:05→20:55)
--- NOTE | 2021-05-19 12:55 | PN.HOSP_ITS ---
Subjective Subjective Patient seen and examined. She was admitted with a complaint of slurred speech, with concerns for stroke. CT of he brain was negative for any acute intracranial pathology; CTA of hte head and neck was also normal, and EKG showed no evidence of acute ischemic changes. NIH stroke scale was 7 on admission, so she was given tPA and admitted to the ICU afterwards. Patient feels better and had no active complaints. SHe felt her speech had improved. SHe denied any numbness, tingling in any extremities, any focal weak ness or any mouth droop. Review of systems is otherwise negative. Objective Data Objective Data Vital Signs: Vital Signs Temp Pulse Resp BP Pulse Ox 98.2 F 57 L 18 114/61 97 05/19/21 07:00 05/19/21 10:00 05/19/21 10:00 05/19/21 10:00 05/19/21 10:00 Oxygen Delivery Method Room Air Weight: 173 lb 11.588 oz Body Mass Index (BMI) 28.0 Intake & Output: Intake and Output for Last 24 Hours 05/17/21 05/18/21 05/19/21 23:59 23:59 23:59 Intake Total 64.40 / 64.40 0 / 0 Balance 64.40 / 64.40 0 / 0 Lab / Micro Data Result Diagrams: 05/18/21 19:25 05/18/21 19:25 Labs: Laboratory Results - last 24 hr 05/18/21 19:23: POC Glucose 105 05/18/21 19:25: WBC 6.2, RBC 4.42, Hgb 14.0, Hct 40.4, MCV 91.4, MCH 31.7, MCHC 34.7, RDW Std Deviation 41.2, RDW Coeff of Latisha 12.4, Plt Count 173, MPV 9.7, Im mature Gran % (Auto) 0.200, Neut % (Auto) 42.5 L, Lymph % (Auto) 43.5 H, Dyer % (Auto) 11.1 H, Eos % (Auto) 1.9, Baso % (Auto) 0.8, Absolute Neuts (auto) 2.6, Absolute Lymphs (auto) 2.70, Nucleated RBC % 0 05/18/21 19:25: PT 12.6, INR 1.0, APTT 25.1 05/18/21 19:25: Sodium 141, Potassium 3.6, Chloride 108 H, Carbon Dioxide 26.0, Anion Gap 7, BUN 24 H, Creatinine 0.97, Estim Creat Clear Calc 40.82, Est GFR (MDRD) Af Amer 72, Est GFR (MDRD) Non-Af 59 L, BUN/Creatinine Ratio 24.7 H, Glucose 112 H, Calcium 9.1, Troponin I High Sens 17 05/18/21 19:50: Ethyl Alcohol < 3.0 05/18/21 21:42: Urine Color Yellow, Urine Clarity Clear, Urine pH 8.0, Ur Specific Beatty 1.010, Urine Protein Negative, Urine Glucose (UA) Normal, Urine Ketones 5 H, Urine Occult Blood 25 H, Urine Nitrite Negative, Urine Bilirubin Negative, Urine Urobilinogen Normal, Ur Leukocyte Esterase 25 H, Urine RBC 0 SEEN, Urine WBC 0-5 SEEN, Ur Squamous Epith Cells 0 SEEN, Urine Bacteria 0 SEEN, Urine Mucus 0 SEEN 05/18/21 23:38: Magnesium 1.9, Total Bilirubin 0.50, Direct Bilirubin 0.05, AST 38 H, ALT 23, Alkaline Phosphatase 40 L, Total Protein 7.1, Albumin 3.4, Globulin 3.7 05/18/21 : Urine Opiates Screen NEGATIVE, Urine Methadone Screen NEGATIVE, Ur Barbiturates Screen NEGATIVE, Ur Phencyclidine Scrn NEGATIVE, Ur Amphetamines Screen NEGATIVE, U Methamphetamin-MDMA NEGATIVE, U Benzodiazepines Scrn NEGATIVE, Urine Cocaine Screen NEGATIVE, U Cannabinoids Screen NEGATIVE, Ur Drug Screen Comment 05/19/21 04:00: Triglycerides 148, Cholesterol 249 H, LDL Cholesterol 177 H, VLDL Cholesterol 30, HDL Cholesterol 42, TSH 0.53 05/19/21 04:00: Hemoglobin A1c 5.6 Micro: Microbiology 05/19/21 00:30 Nasal Secretion SARS-CoV-2 Antigen (Rapid) - Final Radiography Diagnostic Testing: Radiology Impression Brain CT 05/18/21 19:36 IMPRESSION: No acute intracranial abnormality. Electronically Signed: Be Jordan MD at 19:53 EDT Tel , Service support , ADDENDUM: 05/18/212005 IMPRESSION: No acute intracranial abnormality. N.B. : The above Results were Read Back by Be Jordan MD to Sonny Mckeon DO, and understanding confirmed on 05/18/2021 19:59:56 (ET). Electronically Signed: Be Jordan MD at 19:53 EDT Tel , Service support , ADDENDUM: 05/18/212005 IMPRESSION: No acute intracranial abnormality. N.B. : The above Results were Read Back by Be Jordan MD to Sonny Mckeon DO, and understanding confirmed on 05/18/2021 19:59:56 (ET). Electronically Signed: Be Jordan MD at 19:53 EDT Tel , Service support , Head/Neck CTA 05/18/21 19:36 IMPRESSION: Normal CTA Head and neck with contrast. Electronically Signed: Caitlyn Morgan MD at 20:12 EDT Tel , Service support , ADDENDUM: 05/18/212018 IMPRESSION: Normal CTA Head and neck with contrast. N.B. : The above Results were Read Back by Caitlyn Morgan MD to Sonny Mckeon DO , DO, and understanding confirmed on 05/18/2021 20:12:37 (ET). Electronically Signed: Caitlyn Morgan MD at 20:12 EDT Tel , Service support , Chest X-Ray 05/18/21 19:43 IMPRESSION: No acute radiographic abnormalities. Electronically Signed: Be Jordan MD at 20:36 EDT Tel , Service support , Abdomen/Pelvis CT 05/18/21 21:50 IMPRESSION: 1. No acute findings in the abdomen or pelvis. 2. Hepatic hypodensity not adequately characterized without contrast. Electronically Signed: Caitlyn Morgan MD at 22:26 EDT Tel , Service support , Echocardiogram 05/19/21 01:02 Interpretation Summary Normal LV size. Left ventricular systolic function is normal. The estimated ejection fraction is 60 %. Stage 1 diastolic dysfunction. Pulmonary artery systolic pressure is 27 mmHg. Structurally normal valves. Ordering Physician: Corry Null Referring Physician: Alyson Enrique Performed By: Bj Calvert RCS Physical Exam Const alert, oriented x3 and no apparent distress Exam Limitations: no limitations HEENT head/scalp atraumatic and moist oral mucous membranes Head and Scalp: normocephalic Eyes PERRL, EOMs intact bilaterally and conjunctivae normal Neck no lymphadenopathy Resp normal respiratory effort, no retractions, no use of accessory muscles and clear to auscultation bilaterally Cardio regular rate, regular rhythm, S1 normal heart sound, S2 normal heart sound and no murmurs GI normal to inspection, nondistended, normoactive bowel sounds, soft to palpation, non-tender and non-distended Extremity normal to inspection, full ROM and no clubbing, cyanosis or edema Peripheral Pulses: Yes pulses 2+ throughout Skin no rashes or lesions noted Neuro oriented x3, CN's II-XII intact bilaterally, moves all extremities, no focal motor deficits and no sensory deficits noted Sensorium / Orientation: awake and alert Speech: speech normal Motor Exam: strength 5/5 throughout Psych affect normal Assessment & Plan Assessment/Plan (1) Acute CVA (cerebrovascular accident): PLAN: #Probable CVA * dysarthria has largely resolved. Had a CT of the brain which showed no evidence of stroke * received tPA yesterday * BP meds on hold to allow for permissive hypertension * neurochecks per stroke protocol * for MRI of the brain today, 24 hours after administration of tPA * PT/OT consult * on high intensity statin * fall precautions * check A1C * #Hyperlipidemia: on high intensity statin. lipid panel showed cholesterol of 249 and LDL of 177. #Chronic osteoporosis: on reclast. Follow up with PCP and registered respiratory technician on outpatient basis #Incidental hepatic hypodensity * as per CT scan which showed hepatic hypodensity, which wasnt adequately characterised without contrast. Liver enzymes not grossly abnormal. * to follow up with PCP on outpatient basis for further work up as needed. * DVT prophylaxis: SCDs. no anticoagulation as she received tPA yesterday. Charges/Coding Visit Charges Inpatient E&M: 19376 Subs Hosp L2
[2021-05-19] MEDS: CHLORHEXIDINE GLUC 2% CLOTH 1 EACH TOWELETTE TOPICAL (14:20)
--- NOTE | 2021-05-19 20:00 | MRI_ITS ---
STUDY: MRI BRAIN WITHOUT CONTRAST REASON FOR EXAM: Female, 76 years old. CVA -- MRI 24 hours after IV alteplase, speech difficulty TECHNIQUE: Standardized multiplanar fat and water weighted pulse sequences were obtained. COMPARISON: None. FINDINGS: Normal size of the ventricles and extra-axial spaces for the patient''s age. There are a limited number of small white matter hyperintensities, distributed throughout the deep white matter tracts of the cerebral hemispheres, consistent with mild chronic white matter ischemic changes. There is no evidence for recent intracranial ischemia or other cause of cytotoxic edema on diffusion weighted imaging (DWI). Normal bilateral basal ganglia. Normal thalami. There is no extra-axial fluid accumulation. Normal flow voids within the major intracranial circulation suggesting patency by spin echo criteria. Normal sella turcica, pituitary gland, infundibular stalk, optic chiasm and hypothalamus. Normal tectal plate and pineal gland. Normal midbrain, milka and medulla. Normal cerebellum. Normal basal cisterns. Normal bilateral temporal bones. Normal bilateral internal auditory canals. No demonstrated orbital abnormality, within the constraints of a routine brain study. Normal visualized paranasal sinuses. Normal calvarium and skull base. Left intraparotid lymph node noted. Normal visualized upper cervical spine. MRI/Brain without Contrast IMPRESSION: No finding of acute infarct. Electronically Signed: Marco Antonio Chamberlain MD at 22:13 EDT Tel , Service support ,
[2021-05-19] MEDS: MELATONIN 3 MG TABLET PO (20:55)
[2021-05-20] VITALS (9 sets, daily range): BP systolic 108–127; BP diastolic 42–88; PULSE 49–60; RESP 12–18; TEMP 36.6–36.8; O2SAT 94–98; BMI 28.0
--- NOTE | 2021-05-20 00:16 | PCM.HOSP.N ---
Hospitalist Note MRI Brain without acute findings. Patient with ongoing headache with light/sound sensitivity, rated 7/10 currently. Given this negative image do feel patient presentation likely acute complex migraine. Will initiate IV VPA 500mg Q6 hours, IV Decadron 4mg Q6 hours, IV Toradol 15 mg q 8 x 5 doses and PO Neurontin 100mg TID. If VILLANUEVA improves would benefit from consideration upon discharge to home on regimen including Depakote ER 500mg QHS, Neurontin 100 mg TID with meals x 1 week, Medrol dose pack, Imitrex prn with Neurology follow-up.
--- NOTE | 2021-05-20 00:52 | NURSING ---
Pt woken up to give meds. Pt refused. said she has no vega at this time
[2021-05-20] MEDS: Calcium Carbonate 500 MG Tablet PO (08:27)
[2021-05-20] MEDS: Multivitamins,Therapeutic Tablet 1 TABLET PO (08:27)
[2021-05-20] MEDS: Aspirin E.C. 81 MG Tablet PO (08:27)
--- NOTE | 2021-05-20 08:34 | TELEMED_ITS ---
[facility] has confirmed receipt of a request for visit. This document confirms receipt of the order initiating the consult. To find the results of the consultation, please view the patient's reports for the scanned Telemed Consult.
[2021-05-20 08:53] LABS: Absolute Lymphocyte Count 2.04 X10^3/uL (0.83-4.51); Basophil# 0.05 X10^3/uL; Basophil% 0.8 % (0-1); Eosinophil# 0.29 X10^3/uL; Eosinophils% 4.9 % (0-5); Hematocrit 40.2 % (37-47); Hemoglobin 13.7 g/dL (12.0-15.0); Lymphocyte # 2.04 X10^3/ul (0.83-4.51); Lymphocyte % 34.6 % (19-41); Mean Corp Hgb Conc 34.1 g/dL (32-36); Mean Corpuscular Hgb 31.1 pg (27.0-32.0); Mean Corpuscular Volume 91.2 fL (81-99); Mean Platelet Vol. 9.4 fl (6.2-12.0); Monocyte# 0.48 X10^3/uL; Monocyte% 8.1 % (0-10); NRBC Flagged by Analyzer 0 % (0-5); Neutrophil # 3.02 X10^3/uL (2.7-7.7); Neutrophil % 51.3 % (47-70); Platelet Count 136 K/mm3 (150-450); RBC Distribution Width CV 12.7 % (11.6-14.6); RBC Distribution Width SD 42.2 fl (35.1-43.9); Red Blood Count 4.41 M/mm3 (4.2-5.4); White Blood Count 5.9 K/mm3 (4.4-11.0)
[2021-05-20 09:04] LABS: Anion Gap 6 (5-15); BUN 21 mg/dL (7-18); BUN/Creat Ratio 27.9 RATIO (10-20); Calcium,Total 8.8 mg/dL (8.5-10.1); Chloride 110 mmol/L (98-107); Creatinine, Serum 0.75 mg/dL (0.55-1.02); EST Glomerular Filtration Rate 80 mL/min (>60); Est Glom Filt Rate - Afr Amer 96 mL/min (>60); Glucose 96 mg/dL (74-106); Potassium 3.8 mmol/L (3.5-5.1); Sodium Level 139 mmol/L (136-145)
--- NOTE | 2021-05-20 13:42 | DCINST_ITS ---
Discharge Instructions Diet Discharge Diet: No restrictions Activity Discharge Activity: Return to Normal Activity Dressing / Incision Call your doctor if you observe: Shortness of breath, Dizziness and Chest pain Follow Up Care Test Results: Test results from this visit will be discussed in further detail at your follow-up appointment, if applicable. Discharge Plan Admission Admit Date/Time: 05/18/21 23:22 Primary Reason for Your Visit: Presumed complex migraine, stroke ruled out Attending Provider: Chaya Sullivan Primary Care Provider: Alyson Enrique Consulting Providers: Praneeth Chao ; Naif Witt ; Cristiane Raza [employer] LEADER Discharge Orders/Prescriptions Prescriptions: Continued Stool Softener 50 mg capsule 50 mg PO DAILY RF: 0 multivitamin [Daily Multi-Vitamin] Tablet 1 tab PO DAILY RF: 0 calcium carbonate [Calcium 600] 600 mg calcium (1,500 mg) tablet 600 mg PO BID RF: 0 aspirin 81 mg tablet,delayed release (DR/EC) 81 mg PO DAILY RF: 0 vitamin D3-vitamin K2 5,500-200 unit-mcg Tablet 1 tab PO DAILY RF: 0 Referrals / Follow Up: Michele Wolf MD [NON-STAFF] - Within 1 Month Alyson Enrique PA [Primary Care Provider] - In 1 Week Disposition Disposition (needs filled in before D/C Order can be placed): Home, Self Care
--- NOTE | 2021-05-20 13:48 | DS.PCM_ITS ---
Documented by User: Elayne Gonzalez NP, [employer]HOUSE [employer]PER-C 05/20/21 13:56 Providers Date of Admission: 05/18/21 Date of Discharge: 05/20/21 Primary Care Physician: JUN Medina Consultations 05/19/21 01:02 Consult: Telecommunications Professional / Pulmonary Medicine Routine Consulting Provider: [facility] [place] Reason for Consult: stroke for alteplase EMERGENT Consult: Yes MD Notified: Yes Date Notified: 05/18/21 Time Notified: 23:27 Method of Notification: cortext Reason For Visit: ACUTE CVA S/P TPA Diagnosis Discharge Diagnosis (1) Acute CVA (cerebrovascular accident): Status: Acute Code(s): I63.9 - Cerebral infarction, unspecified Medications at Discharge Home Medications aspirin 81 mg tablet,delayed release 81 mg PO DAILY 01/16/20 calcium carbonate 600 mg calcium (1,500 mg) tablet 600 mg PO BID 01/16/20 docusate sodium 50 mg capsule 50 mg PO DAILY 01/16/20 multivitamin 1 tab PO DAILY 01/16/20 vitamin D3-vitamin K2 1 tab PO DAILY 05/18/21 atorvastatin 20 mg PO QHS #30 tab 05/20/21 Hospital Course Operations None Procedures 2-D Echocardiogram Summary of Care Provided Minutes Spent on Discharge: 35 Hospital Course: Patient is a 76-year-old female admitted 05/18/2021 due to dysarthria. 1. Dysarthria, headache-presumed complex migraine. CVA ruled out. Patient did initially receive TPA as recommended by telestroke consult. MRI of brain negative for stroke. Patient reports history of sporadic headaches with similar symptoms lasting briefly. Echocardiogram with EF 60%. Given infrequent episodes at this point, will not initiate preventative migraine regimen at this time. Follow-up with neurology at discharge for ongoing treatment and evaluation. 2. Hyperlipidemia-initiated on statin. Recommend repeat lab by PCP. 3. Osteoporosis-follows with endocrinology. 4. Incidental hepatic hypodensity-noted on CT, recommend outpatient liver ultrasound and further outpatient follow-up. Patient seen and examined prior to discharge. Physical assessment as noted below. Patient is stable for discharge with follow up recommendations as noted above. This patient was seen by [facility] under the supervision of Dr. Sullivan. Physical Exam Const alert, oriented x3 and no apparent distress Orientation / Consciousness: awake, oriented to person, oriented to place and oriented to time HEENT normocephalic and moist oral mucous membranes Eyes PERRL, EOMs intact bilaterally and conjunctivae normal Neck no lymphadenopathy Resp normal respiratory effort and clear to auscultation bilaterally Cardio regular rate, regular rhythm and no murmurs Peripheral Pulses: pulses 2+ throughout GI normal to inspection, nondistended, normoactive bowel sounds, non-tender and non-distended Extremity normal to inspection Skin no rashes or lesions noted Lesions: no lesions Rashes: no rashes Trauma: no lacerations or abrasions Neuro CN's II-XII intact bilaterally, no focal motor deficits, no sensory deficits noted and deep tendon reflexes 2+ bilaterally Psych mental status grossly normal and affect normal Weight / BMI Weight Weight: 175 lb 11.335 oz Body Mass Index (BMI) 28.0 ABG / Lab / Microbiology Data Result Diagrams: 05/20/21 08:42 05/20/21 08:42 Laboratory: Laboratory Results - last 24 hr 05/20/21 08:42: WBC 5.9, RBC 4.41, Hgb 13.7, Hct 40.2, MCV 91.2, MCH 31.1, MCHC 34.1, RDW Std Deviation 42.2, RDW Coeff of Latisha 12.7, Plt Count 136 L, MPV 9.4, Immature Gran % (Auto) 0.300, Neut % (Auto) 51.3, Lymph % (Auto) 34.6, Taney % (Auto) 8.1, Eos % (Auto) 4.9, Baso % (Auto) 0.8, Absolute Neuts (auto) 3.0, Absolute Lymphs (auto) 2.04, Nucleated RBC % 0 05/20/21 08:42: Sodium 139, Potassium 3.8, Chloride 110 H, Carbon Dioxide 23.0, Anion Gap 6, BUN 21 H, Creatinine 0.75, Estim Creat Clear Calc 44.80, Est GFR (MDRD) Af Amer 96, Est GFR (MDRD) Non-Af 80, BUN/Creatinine Ratio 27.9 H, Glucose 96, Calcium 8.8 Microbiology: Microbiology 05/19/21 00:30 Nasal Secretion SARS-CoV-2 Antigen (Rapid) - Final Radiography Diagnostic Testing: Radiology Impression Brain MRI 05/19/21 20:00 IMPRESSION: No finding of acute infarct. Electronically Signed: Marco Antonio Chamberlain MD at 22:13 EDT Tel , Service support , D/C Instructions Discharge Diet: No restrictions Call your doctor if you observe: Shortness of breath, Dizziness and Chest pain Meaningful Use Info Meaningful Use Diagnoses (Choose all that apply): None applicable Discharge Plan Admission Admit Date/Time: 05/18/21 23:22 Primary Reason for Your Visit: Presumed complex migraine, stroke ruled out Attending Provider: Chaya Sullivan Primary Care Provider: Alyson Enrique Consulting Providers: Praneeth Chao ; Naif Witt ; Cristiane Raza NP Instructions Additional Instructions / Restrictions: Patient Problems: Altered Health Status related to Hospitalization Patient Goals: *Optimal Level of Health *Keep Appointments *Medication Compliance *Remain Safe Discharge Orders/Prescriptions Prescriptions: New atorvastatin 20 mg tablet 20 mg PO QHS Qty: 30 RF: 0 Continued Stool Softener 50 mg capsule 50 mg PO DAILY RF: 0 multivitamin [Daily Multi-Vitamin] Tablet 1 tab PO DAILY RF: 0 calcium carbonate [Calcium 600] 600 mg calcium (1,500 mg) tablet 600 mg PO BID RF: 0 aspirin 81 mg tablet,delayed release (DR/EC) 81 mg PO DAILY RF: 0 vitamin D3-vitamin K2 5,500-200 unit-mcg Tablet 1 tab PO DAILY RF: 0 Referrals / Follow Up: Michele Wolf MD [NON-STAFF] - Within 1 Month Alyson Enrique PA [Primary Care Provider] - In 1 Week Disposition Disposition (needs filled in before D/C Order can be placed): Home, Self Care Documented by User: Dr. Chaya Sullivan MD 05/20/21 16:54 Providers Date of Admission: 05/18/21 Reason For Visit: ACUTE CVA S/P TPA Medications at Discharge Home Medications aspirin 81 mg tablet,delayed release 81 mg PO DAILY 01/16/20 calcium carbonate 600 mg calcium (1,500 mg) tablet 600 mg PO BID 01/16/20 docusate sodium 50 mg capsule 50 mg PO DAILY 01/16/20 multivitamin 1 tab PO DAILY 01/16/20 vitamin D3-vitamin K2 1 tab PO DAILY 05/18/21 atorvastatin 20 mg PO QHS #30 tab 05/20/21 ABG / Lab / Microbiology Data Result Diagrams: 05/20/21 08:42 05/20/21 08:42 Discharge Plan Admission Admit Date/Time: 05/18/21 23:22 Primary Reason for Your Visit: Presumed complex migraine, stroke ruled out Attending Provider: Chaya Sullivan Primary Care Provider: Alyson Enrique Consulting Providers: Praneeth Chao ; Naif Witt ; Cristiane Raza NP Instructions Additional Instructions / Restrictions: Patient Problems: Altered Health Status related to Hospitalization Patient Goals: *Optimal Level of Health *Keep Appointments *Medication Compliance *Remain Safe Discharge Orders/Prescriptions Prescriptions: New atorvastatin 20 mg tablet 20 mg PO QHS Qty: 30 RF: 0 Continued Stool Softener 50 mg capsule 50 mg PO DAILY RF: 0 multivitamin [Daily Multi-Vitamin] Tablet 1 tab PO DAILY RF: 0 calcium carbonate [Calcium 600] 600 mg calcium (1,500 mg) tablet 600 mg PO BID RF: 0 aspirin 81 mg tablet,delayed release (DR/EC) 81 mg PO DAILY RF: 0 vitamin D3-vitamin K2 5,500-200 unit-mcg Tablet 1 tab PO DAILY RF: 0 Referrals / Follow Up: Michele Wolf MD [NON-STAFF] - Within 1 Month Alyson Enrique PA [Primary Care Provider] - In 1 Week Disposition Disposition (needs filled in before D/C Order can be placed): Home, Self Care Charges/Coding Addendum Addendum: Patient seen by Elayne MONTENEGROC under my supervision Patient is a 76-year-old female with an extensive past medical history as outlined below who was admitted to the ED on 05/18/2021 with a complaint of difficulty speaking which started while she was out eating. She had associated transient confusion and also complained of a severe left-sided headache which was throbbing and worsened with light and sound exposure. She had assisted mild nausea. CT of the brain was negative for any evidence of stroke and CTA of the head and neck was also within normal limits. Chest x-ray showed no acute cardiopulmonary findings and EKG was normal sinus rhythm with no evidence of ischemia. NIH stroke scale on admission was reportedly 7 in the ED and so she was administered TPA after telestroke was consulted. Patient was admitted in the ICU post TPA administration and managed for probable stroke. She also had CT of the abdomen and pelvis which showed no acute abdominal findings apart from a hepatic hypodensity which not adequately characterised due to absence of contrast. 2D echo showed EF of 60%, with normal LV systolic function and size, and no regional wall motion abnormalities, with structurally normal valves. MRI of the brain was negative for any evidence of CVA. Her symptoms were therefore thought to be largely due to a complex migraine. 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 She remained stable and was discharged home on 05/20/2021. SHe is to follow up with her PCP in 1-2 weeks. Patient was seen and examined prior to discharge. She felt better and her dysarthria had resolved. Review of systems was otherwise negative. Labs and vitals reviewed. Home medications reviewed and reconciled. O/E: Const alert, oriented x3 and no apparent distress Exam Limitations: no limitations HEENT head/scalp atraumatic and moist oral mucous membranes Head and Scalp: normocephalic Eyes PERRL, EOMs intact bilaterally and conjunctivae normal Neck no lymphadenopathy Resp normal respiratory effort, no retractions, no use of accessory muscles and clear to auscultation bilaterally Cardio regular rate, regular rhythm, S1 normal heart sound, S2 normal heart sound and no murmurs GI normal to inspection, nondistended, normoactive bowel sounds, soft to palpation, non-tender and non-distended Extremity normal to inspection, full ROM and no clubbing, cyanosis or edema Peripheral Pulses: Yes pulses 2+ throughout Skin no rashes or lesions noted Neuro oriented x3, CN's II-XII intact bilaterally, moves all extremities, no focal motor deficits and no sensory deficits noted Sensorium / Orientation: awake and alert Speech: speech normal Motor Exam: strength 5/5 throughout Psych affect normal Rest as per Elayne Gonzalez [employer]HOUSE SHIPPER-C's note, which I have reviewed and endorsed. Visit Charges Inpatient E&M: 83045 Disch Hosp
--- NOTE | 2021-05-20 14:00 | CASEMGMT ---
Per therapy, no further therapy recommended for pt at this time. SStaten RN CM
== END 2021-05-20 14:56 | disposition home or self-care (01) | DRG 103 ==
LOC: ED 23:32 → ICU 23:38 → PCU 05-20 13:46 → ICU 05-22 02:19
PROVIDERS: Admitting Provider Family Medicine; Emergency Provider Emergency Medicine; PCP Physician Assistant Medical; Visit Provider Student in an Organized Health Care Education/Training Program
DX: G43.109 Migraine with aura, not intractable, without status migrainosus (principal); G44.89 Other headache syndrome; R47.1 Dysarthria and anarthria; R93.2 Abnormal findings on diagnostic imaging of liver and biliary tract; R10.9 Unspecified abdominal pain; M81.0 Age-related osteoporosis without current pathological fracture; R03.0 Elevated blood-pressure reading, without diagnosis of hypertension; E78.5 Hyperlipidemia, unspecified; E66.9 Obesity, unspecified; Z68.28 Body mass index [BMI] 28.0-28.9, adult; H26.9 Unspecified cataract; Z85.828 Personal history of other malignant neoplasm of skin; Z79.82 Long term (current) use of aspirin; Z79.899 Other long term (current) drug therapy
CPT/HCPCS: 36415; 70450; 70496; 70498; 70551; 71045; 74176; 80048; 80061; 80076; 80307; 81001; 82077; 82962; 83036; 83735; 84443; 84484; 85025; 85610; 85730; 87426; 92610; 93005; 93306; 97161; 97166; 97802; 99251; 99284; J2997; J7030; Q9957; Q9967; A4216; G0463; J2405; J3490